=== PATIENT | female | born 1955 | race Two or more races ===

== ENCOUNTER 2025-01-11 15:00 | Emergency (ER) | payer MEDICARE, MEDICAID ==
[~2025-01-11] VITALS: Ht 170.2 cm; Wt 82.0 kg
[2025-01-11 15:02] VITALS: BP 189/76; PULSE 89; RESP 16; TEMP 98.4; O2SAT 99
--- NOTE | 2025-01-11 15:08 | Physician Documentation ---
History of Present Illness ~ Chief Complaint: Leg Pain Stated Complaint: L LEG PAIN Time Seen by MD: 16:13 OK to notify your PCP?: Yes Source: patient Mode of Arrival: POV Exam Limitations: no limitations HPI 69-year-old female presents with left lower back pain that has been radiating down her left leg for the past 3 weeks. She has a history of sciatica and has been having low back problems on and off for years. She was seen at a walk-in clinic and was given Toradol with no relief. She has been taking ibuprofen at home also with no relief. Ambulatory and denies any loss of bowel or bladder. Medication Reconciliation Allergies: Coded Allergies: No Known Allergies (Unverified , 01/11/25) Review of Systems All Other Systems at this time: Reviewed and Negative Physical Exam Vital Signs: RN Vital Signs have been reviewed: Yes, Temperature: 98.4, Source: Temporal, Heart Rate: 89, Respiratory Rate: 16, BP: 189/76, Pulse Oximetry: 99, Weight: 82.000 Oxygen Flow Rate: 0 Pulse Oximetry Reflects: adequate oxygenation Physical Exam General: Alert, mild distress. HEENT: No injection, moist mucous membranes. Neck: Full range of motion. Respiratory: No respiratory distress, equal chest rise and fall. Chest: No accessory muscle use. Cardiovascular: Regular rate and rhythm. Gastrointestinal: Nondistended. Extremities: Normal range of motion, no deformity. Ambulatory, good CSM normal sensation in bilateral legs. Neurologic: Oriented x4. Psychiatric: Normal mood and affect. Skin: Normal color, warm and dry. Progress Results/Orders Results/Orders Vital Signs 01/11/25 15:02 Temp 98.4 Pulse 89 Resp 16 B/P (MAP) 189/76 Pulse Ox 99 O2 Flow Rate 0 Medical Decision Making Additional info obtained from: family Findings 69-year-old female presents with sciatica traveling down her left leg for the past 3 weeks. She was previously seen at an urgent care clinic and given a Toradol injection with no relief. She was taken ibuprofen at home also with no relief. She states that she has a history of having low back pain an on and off having sciatica which normally resolves by itself. We discussed that this can take up to 12 weeks for her to fully resolve. Her neuro exam is normal and she has no signs or symptoms of cauda equina. I gave her a Norflex injection and naproxen while here in the department. We discussed that the increased risk of her having a muscle relaxer due to her age and her and her daughter acknowledged this risk. We discussed that for the 1st dose of the Flexeril she should take a half tablet at nighttime to see how her body reacts to it as if she is very drowsy she should not take a full tablet. She should follow up with the primary care provider in the next 3 days and return back here for any new or worsening symptoms. General Diff Dx:Considerations: Include: Neurovascular injury, Sprain Additional Comment Cauda equina, lumbar fracture, Departure Disposition: HOME / SELF CARE / HOMELESS Impression: Primary Impression: Sciatica Condition: Stable Discharge Instructions: Sciatica Additional Instructions: For the 1st tablet please start this tomorrow and only take a half tablet at nighttime to see how your body reacts to it. Follow up with her primary care provider in the next 3 days and return back here for any new or worsening symptoms. You can use the naproxen at home for pain relief and use heating Referrals: NO PRIMARY CARE PROVIDER (PCP) Prescriptions Naproxen (Naprosyn) 500 Mg Tablet 1 TAB PO Q12H for pain for 30 Days, #60 TAB 0 Refills Prov: STACY AZUL 01/11/25 Cyclobenzaprine HCl (Cyclobenzaprine HCl) 10 Mg Tablet 1 TAB PO HS for muscle spasms for 10 Days, #10 TAB Prov: STACY AZUL 01/11/25 Education Educated: Patient Educated regarding: diagnosis, treatment, prognosis, need for follow up Additional Comment Medical Screen Exam This patient recieved a medical screening examination. After reviewing the individual's medical complaints with presenting symptoms and performing an appr opriate physical examination, it was determined that no immediate life- threatening emergency medical condition is present. This individual is also not a women having contractions. Signature Scribe Signature: . Attestation: Scribed for Stacy Azul by Stacy Wilson NP . 01/11/25 17:07 STACY AZUL Jan 11, 2025 15:08
[2025-01-11] MEDS ORDERED: NAPR-1154 PO (16:49)
[2025-01-11] MEDS ORDERED: CYCL-394 PO (16:49)
[2025-01-11] MEDS ORDERED: cyclobenzaprine 10mg tablet PO ONE (16:50)
[2025-01-11] MEDS: naproxen 500mg tablet PO ONE (17:23)
[2025-01-11] MEDS: orphenadrine citrate 60mg/2ml inj. IM ONE (17:25)
== END 2025-01-11 17:34 | disposition home or self-care (01) ==
LOC: ER 15:01
DX: M54.32 Sciatica, left side (principal)
CPT/HCPCS: 96372; 99283; J2360